=== PATIENT | female | born 1970 | race Caucasian/White ===

== ENCOUNTER → 2022-11-03 10:12 | Outpatient (CLI) | payer MEDICARE, SELFPAY ==
--- NOTE | ~2022-11-03 | XR_ITS ---
Right Hand Technique: PA and lateral views were obtained. Clinical History: Laceration Findings: No acute fracture or dislocation is seen. Osseous alignment is anatomic. Joint spaces are p reserved. Soft tissues are unremarkable. Impression: Unremarkable right hand. Reviewed, dictated and finalized at location M. Impression: Unremarkable right hand.
--- NOTE | ~2022-11-03 | XR_ITS ---
Left Hand Technique: PA and lateral views were obtained. Clinical History: Laceration Findings: No acute fracture or dislocation is seen. Osseous alignment is anatomic. Joint spaces are p reserved. Soft tissues are unremarkable. Impression: Unremarkable left hand. Reviewed, dictated and finalized at location M. Impression: Unremarkable left hand.
== END ==
PROVIDERS: PCP Family Medicine; Visit Provider Family Medicine
DX: S61.419A Laceration without foreign body of unspecified hand, initial encounter (principal); T14.90XA Injury, unspecified, initial encounter
CPT/HCPCS: 73120

== ENCOUNTER → 2022-12-17 08:15 | Outpatient (CLI) | payer MEDICARE, SELFPAY ==
--- NOTE | ~2022-12-17 | MR_ITS ---
MRI of the lumbar spine Clinical History: Back pain Technique: Axial T2-weighted images, and sagittal T1-weighted, T2-weighted, and and T2 fat-sat images were acquired. Findings: There is 3 mm anterolisthesis of L5 over S1. No fracture identified. No suspicious bone mar row signal abnormality seen. At L1-L2, L2-L3, L3-L4, intervertebral discs maintain normal signal and position. No disc bulge or he rniation at these levels. There are mild facet joint degenerative changes at these levels. No spinal canal stenosis or neural foraminal narrowing at these levels. At L4-L5, there is minimal disc bulge with moderate facet arthropathy. No central canal stenosis or n eural foraminal narrowing. At L5-S1, there is moderate to advanced degenerative disc narrowing. There is minimal disc bulge and mild facet arthropathy. No spinal canal stenosis. There is moderate bilateral neural foraminal narrow ing. Paravertebral soft tissues are unremarkable. Impression: Moderate bilateral neural foraminal narrowing at L5-S1. Reviewed, dictated and finalized at location . Impression: Moderate bilateral neural foraminal narrowing at L5-S1.
== END ==
PROVIDERS: Visit Provider Nurse Practitioner Family
DX: M48.07 Spinal stenosis, lumbosacral region (principal)
CPT/HCPCS: 72148

== ENCOUNTER 2023-10-30 18:58 | Emergency (ER) | payer MEDICARE, MEDICAID, SELFPAY ==
--- NOTE | ~2023-10-30 | XR_ITS ---
EXAMINATION: XR hand RT min 3V DATE: 10/30/2023 19:41 INDICATION: Right hand injury with pain TECHNIQUE: Posteroanterior, oblique and lateral views of the right hand were obtained. COMPARISON: None. FINDINGS: Bone alignment is normal. No fracture. Joint spaces are well maintained. There is no elbow joint effu oscar. IMPRESSION: 1. Negative right hand radiographs. Reviewed, dictated and finalized at location A.
[2023-10-30 19:13] VITALS: BP 141/97; PULSE 106; RESP 16; TEMP 36.6; O2SAT 96
--- NOTE | 2023-10-31 17:03 | ED.GENADULT ---
HPI - General Adult General Chief complaint: Extremity Injury, Upper Stated complaint: Fall Injury/Right Hand/Wrist Time Seen by Provider: 10/30/23 19:57 Source: patient, RN notes reviewed and old records reviewed Mode of arrival: ambulatory Limitations: no limitations History of Present Illness HPI narrative: 53-year-old female to [facility] for complaint of right hand pain status post fall this morning. Patient states that she initially did not have any pain but that it has slowly come on throughout the day. Patient reports taking prescription pain medication for chronic neck and back pain. Patient reports that she is still having breakthrough pain and right hand. Patient hitting during fall, denies numbness, tingling, decreased range of motion, weakness. Respirations even and nonlabored. Patient in no acute distress. Related Data Home Medications Medication Instructions Recorded Confirmed atorvastatin 10 mg tablet 20 mg PO DAILY 11/29/22 07/12/23 hydrocodone 10 mg-acetaminophen 1 tablet PO Q4H PRN 11/29/22 07/12/23 325 mg tablet oxycodone 10 mg tablet,extended mg PO 11/29/22 07/12/23 release,12 hr triamcinolone acetonide 0.5 % 1 applic topical BID PRN 09/25/23 topical cream Allergies Allergy/AdvReac Type Severity Reaction Status Date / Time No Known Allergies Allergy Unknown Verified 09/25/23 12:57 Review of Systems Review of Systems: All systems reviewed & are unremarkable except as noted in HPI and below Constitutional: Constitutional: Reports no additional constitutional complaints Eyes: Eyes: Reports no additional eye complaints ENT: Reports system reviewed and no additional complaints, except as documented Cardiovascular: Cardiovascular: Reports no additional cardiovascular complaints, Denies chest pain and Denies dyspnea Respiratory: Respiratory: Reports no additional respiratory complaints, Denies cough and Denies dyspnea Musculoskeletal: Musculoskeletal: Reports as per HPI and Reports arthralgias ( right wrist/hand) Neurologic: Reports system reviewed and no additional complaints, except as documented Psychiatric: Psychiatric: Reports no additional psychiatric complaints PMF Past Medical History Medical History Hx of migraines Migration of spinal cord stimulator Thyroid disease Surgical History Surgical History History of fundoplication Hx of abdominal hysterectomy Family History Family History Other Alcoholism Cerebrovascular accident Heart disease Hypertension Social History Social History Smoking packs per day: 1.5 Smoking cigarettes per day: 30.0 Smoking status: Current every day smoker Tobacco type: cigarettes Second hand tobacco smoke exposure: No Alcohol intake: never Substance use: never Substance use type: does not use Lack of Transportation: No Lack of Food: Never True Current Housing: I Have Housing Concerned About Future Housing: No Difficulty Paying Gas/Electric Bills: No Difficulty Paying for Meds: No Currently Unemployed: YES Education: High School Diploma/GED Difficulty w/ Childcare or Family Care: No Living arrangements: alone Occupation/Education: unemployed Gender identity (if verbalized by the patient): Female Sexual Orientation (if Verbalized by the Patient): Straight or Heterosexual Spiritual care concerns: No Agree to blood products: Yes Comments At the time of my signature, I reviewed and agree with the nursing past medical, surgical, social, and family history. There is no relevant family history pertinent to the patient complaint. Exam Const: General: cooperative, comfortable, no acute distress, alert and well nourished Nutritional Appearance:
== END 2023-10-30 20:11 | disposition home or self-care (01) ==
PROVIDERS: Emergency Provider Nurse Practitioner Family; PCP Family Medicine
DX: S66.911A Strain of unspecified muscle, fascia and tendon at wrist and hand level, right hand, initial encounter (principal); W19.XXXA Unspecified fall, initial encounter; F17.210 Nicotine dependence, cigarettes, uncomplicated
CPT/HCPCS: 73130; 99213; G0463

== ENCOUNTER 2024-06-04 17:55 | Emergency (ER) | payer MEDICARE, SELFPAY ==
[2024-06-04 18:02] VITALS: BP 143/90; PULSE 91; RESP 20; TEMP 36.7; O2SAT 98
--- NOTE | 2024-06-04 18:51 | ED.SKABFB ---
HPI - Skin/Abscess/Foreign Bdy General Chief complaint: Skin/Abscess/Foreign Body Stated complaint: Rash all over Time Seen by Provider: 06/04/24 18:55 Source: patient, RN notes reviewed and old records reviewed Mode of arrival: ambulatory Limitations: no limitations History of Present Illness HPI narrative: 53 year old female presents to [facility] with complaints of noting small red itchy bumps over her body since yesterday. Patient denies any new medications, foods, soaps lotions, or any laundry products, does have dog but no noted fleas on dog. Patient reports that she has been taking Benadryl, using hydrocortisone cream to rash areas, denies any rash in perineal area. or on hands or finger . MD complaint: rash Onset (ago): day(s) (started yesterday) Location: generalized Severity scale (1-10): 9 Quality: pruritic Treatments prior to arrival: other (Benadryl and cortisone ointment) Related Data Home Medications ?Medication ?Instructions ?Recorded ?Confirmed ?Last Taken ?Type hydrocodone 10 mg-acetaminophen 1 tablet PO Q4H PRN Pain 11/29/22 04/25/24 Unknown History 325 mg tablet fluticasone propionate 50 See Rx Instructions .Route .COMPLEX 02/07/24 04/25/24 Unknown History mcg/actuation nasal spray,suspension oxycodone 20 mg tablet,crush 20 mg PO BID 02/07/24 04/25/24 Unknown History resistant,extended release 12 hr (OxyContin) Allergies Allergy/AdvReac Type Severity Reaction Status Date / Time No Known Allergies Allergy Unknown Verified 06/04/24 18:02 Review of Systems Review of Systems: CONSTITUTIONAL: Denies fever, chills, or sweats. CARDIOVASCULAR: Denies chest pain, palpitations, or edema. RESPIRATORY: Denies cough or dyspnea. SKIN: Reports rash starting yesterday to abdomen and has spread to legs, arms, and back today, is small red itchy bumps no vesicles or pustules MUSCULOSKELETAL: Denies joint pain or myalgia. NEUROLOGIC: Denies headache, numbness, or weakness. All systems reviewed & are unremarkable except as noted in HPI and below PMFSH Past Medical History Medical History Arthritis Fracture of humerus required orthopedic surgery Hyperlipidemia Migration of spinal cord stimulator Thyroid disease Hx of migraines Surgical History Surgical History H/O arthroscopy of right knee History of lumbar laminectomy History of fundoplication Hx of abdominal hysterectomy Family History Family History Other Alcoholism Cerebrovascular accident Heart disease Hypertension Social History Social History Smoking packs per day: 1 Smoking cigarettes per day: 20.0 Smoking status: Current every day smoker Tobacco type: cigarettes Second hand tobacco smoke exposure: No Alcohol intake: never Substance use: never Substance use type: does not use Lack of Transportation: No Lack of Food: Never True Current Housing: I Have Housing Concerned About Future Housing: No Difficulty Paying Gas/Electric Bills: No Difficulty Paying for Meds: No Currently Unemployed: YES Education: High School Diploma/GED Difficulty w/ Childcare or Family Care: No Living arrangements: alone Occupation/Education: unemployed Gender identity (if verbalized by the patient): Female Sexual Orientation (if Verbalized by the Patient): Straight or Heterosexual Spiritual care concerns: No Agree to blood products: Yes Comments At time of signature, agree with nursing past medical, surgical, social and family history. There is no relevant family history pertinent to the presenting complaint Exam Narrative: GENERAL: Well-appearing, well-nourished, and in no acute distress. HEAD: Normocephalic, atraumatic. EYES: PERRLA, conjunctivae clear, and EOMI. ENT: Mucous membranes moist. Oropharynx without edema, erythema or lesions. NECK: Supple. No lymphadenopathy CHEST: Clear to auscultation. No respiratory distress. SAO2 98% on room air HEART: Regular rate and rhythm. SKIN: Warm, dry.? Patches of red small itchy bumps generalized on body none in perineal area mainly chest back and on limbs.no pustules or vesicles noted. NEURO:? Alert and oriented x3. PSYCH: Normal mood and affect Course Course Emergency Course: Patient is aware of diagnosis, understands and agrees to treatment plan.? Anticipatory guidance given.? Patient agrees to follow-up as directed and is aware of reasons to seek care at the emergency department. Portions of this record may have been created with voice recognition software Level of Care: Express Care Visit Vital Signs Vital signs: Vital Signs Temperature 36.7 C 06/04/24 18:02 Pulse Rate 91 06/04/24 18:02 Respiratory Rate 20 06/04/24 18:02 Blood Pressure 143/90 H 06/04/24 18:02 Pulse Oximetry 98 06/04/24 18:02 Oxygen Delivery Room Air 06/04/24 18:02 Temperature 36.7 C 06/04/24 18:02 Pulse Rate 91 06/04/24 18:02 Respiratory Rate 20 06/04/24 18:02 Blood Pressure 143/90 H 06/04/24 18:02 Pulse Oximetry 98 06/04/24 18:02 Oxygen Delivery Room Air 06/04/24 18:02 Reviewed MDM - Skin/Abscess/Foreign Bdy MDM Narrative Medical decision making narrative: Does not appear at this time to be erythema multiforme, bullous, SJS, TEN; no evidence at this time to suggest RMSF, endocarditis or Lyme disease; patient looks well, nontoxic and is tolerating oral intake; no neurologic signs or symptoms; no headache, photophobia or neck pain; afebrile; appropriate for initial outpatient treatment; discussed the importance of follow-up, patient agrees; question, viral exanthema, contact dermatitis, allergic dermatitis, eczema, urticaria, [ xx ]. No soft palate or uvula edema, no tongue, lip edema or other mucosal involvement, no respiratory compromise, no stridor, no wheezing, no wheezing, no history of syncope, no hypotension, no nausea, vomiting, or diarrhea.? Instructed patient to go to nearest ER immediately for any worsening symptoms including but not limited to: fever, spreading rash, pain, sore throat, headache, dizziness, chest pain, trouble breathing, or any symptoms concerning to the patient. Differential Diagnosis Differential diagnosis: Likely eczema, insect bites, contact dermatitis and other (pruritic rash) Medical Records Attestation: I reviewed the patient's medical records. Critical Care Time Critical Care Time Critical Care Time: No Discharge Plan Discharge Clinical Impression: Contact dermatitis Qualifiers: Contact dermatitis type: unspecified Contact dermatitis trigger: unspecified trigger Qualified Code(s): L25.9 - Unspecified contact dermatitis, unspecified cause Patient Disposition: Home, Self-Care Condition: Stable Instructions: Contact Dermatitis (ED) Additional Instructions: cleanse skin using liquid dial soap and then may apply triamcinolone ointment to rash, never apply to face Steroid taper take as ordered start tomorrow, watch for increasing infection--redness, swelling, drainage Zyrtec daily for 10 days and Pepcid 20 mg daily for 10 days follow up with PCP in 7-10 days for a wound check recheck if develop fever, chills, increasing symptom Go to the ER if your symptoms become worse of if ANY new symptoms develop wash sheets and bedding well avoid any new medication or foods or any new skin products If your symptoms persist, change or worsen significantly before you can contact your personal physician then please, without delay, go to the emergency department for further evaluation. Follow-up with PCP in 7-10 days or sooner if needed Follow up with PCP soon in regards to your blood pressure which is elevated above threshold for referral. Blood pressure above 120/80 may indicate pre-hypertension. Patient Language: Bolivian Prescriptions: New triamcinolone acetonide 0.1 % ointment 1 applic topical BID Qty: 80 0RF Rx Instructions: never apply to face prednisone 10 mg tablet 10 mg PO DIRECTED Qty: 21 0RF Rx Instructions: see taper instructions 6 tabs day 1, 5 tabs day 2, 4 tabs day 3, 3 tabs day 4, 2 tabs day 5, 1 tab day 6 famotidine [Pepcid] 20 mg tablet 20 mg PO DAILY Qty: 10 0RF No Action fluticasone propionate 50 mcg/actuation spray,suspension See Rx Instructions .ROUTE .COMPLEX Rx Instructions: as prescribed oxycodone [OxyContin] 20 mg tablet,oral only,ext.rel.12 hr 20 mg PO BID hydrocodone-acetaminophen 10-325 mg tablet 1 tablet PO Q4H PRN (Reason: Pain) Rx Instructions: asprescribed duloxetine 60 mg capsule,delayed release(DR/EC) 60 mg PO BID Qty: 60 6RF esomeprazole magnesium 40 mg capsule,delayed release(DR/EC) 40 mg PO DAILY Qty: 90 3RF atorvastatin 20 mg tablet 20 mg PO DAILY Qty: 90 1RF mirtazapine 30 mg tablet 30 mg PO QHS Qty: 30 6RF amitriptyline 25 mg tablet 25 mg PO QHS Qty: 30 6RF cyclobenzaprine 10 mg tablet 10 mg PO TID Qty: 180 1RF levothyroxine 50 mcg tablet 50 mcg PO DAILY Qty: 30 5RF meloxicam 15 mg tablet 15 mg PO DAILY Qty: 90 0RF Follow-up/Referrals: Corrie De Los Santos MD [Primary Care Provider] - Time of Disposition: 19:09 Quality [place] Coma Scale Eyes: Open Verbal: Oriented and Alert Motor: Follows Commands Kaycee Coma Total Score: 15
[2024-06-04] MEDS: predniSONE 20 MG TABLET PO (19:01)
[2024-06-04] MEDS: FAMOTIDINE 20 MG TABLET PO (19:01)
== END 2024-06-04 19:16 | disposition home or self-care (01) ==
PROVIDERS: Emergency Provider Registered Nurse; PCP Family Medicine
DX: L25.9 Unspecified contact dermatitis, unspecified cause (principal); E78.5 Hyperlipidemia, unspecified; F17.210 Nicotine dependence, cigarettes, uncomplicated
CPT/HCPCS: 99213; A9270; G0463; J7512

== ENCOUNTER 2024-08-27 09:08 | Outpatient (CLI) | payer MEDICARE, MEDICAID, SELFPAY ==
--- NOTE | ~2024-08-27 | XR_ITS ---
XR hand LT min 3V Ordering provider: Cherri Masters MD History: . G56.03 - Carpal tunnel syndrome, bilateral upper limbs . Comparison: None. FINDINGS: BONES: No acute fracture or dislocation. JOINT SPACES: Well maintained. SOFT TISSUES: Unremarkable. IMPRESSION: No acute osseous abnormality left hand. Reviewed, dictated and finalized at location A.
--- OUTSIDE RECORDS SUMMARY | 2024-08-27 09:17 | XMS_ITS | Clinical Summary ---
Author Organization [facility] Address [address] [place] [address] Care Team Providers Care Restaurant Cashier Name Role Phone Corrie De Los Santos MD Primary Care Provider [phone] Claribel Norton RN Unavailable [phone] Source Comments [facility],non-owned Affiliates and Associated Physician Practices is amultiple site organization consisting of ambulatory clinics and hospital sitesin [place], [place], [place] and [place]. This disclosure is being madepursuant to the Care Everywhere program and may not contain all information available regarding this patient. Last updated 17.[facility] Allergies No known active allergies Medications * Be aware that medications may not be up to date on this document. Alwaysverify current medications with the patient. sertraline (ZOLOFT) 50 MG tablet Take 50 mg by mouth at bedtime. Active DULoxetine (CYMBALTA) 30 MG capsule Take 30 mg by mouth 3 times daily. Active esomeprazole (NEXIUM) 40 MG packet Take 40 mg by mouth 2 times daily,before breakfast and supper. Active cyclobenzaprine (FLEXERIL) 10 MG tablet Take 10 mg by mouth 3 times daily as needed for Muscle Spasms. Active hydrocodone-mary taminophen (NORCO) 10-325 MG tablet Take 1 Tab by mouth every 6 hours as needed for Pain. Takes 1-2 tablets Active oxyCODONE CR 12hr (OXYCONTIN) 40 MG tablet Take 40 mg by mouth every 12 hours. Active lamoTRIgine (LAMICTAL) 25 MG tablet Take 25 mg by mouth at bedtime. Takes 2 at hs Active ondansetron, disintegrating, (ZOFRAN ODT) 8 MG tablet Take 1 Tab by mouth every 4 hours as needed for Nausea/Vomitin g. Allow tablet to dissolve on the tongue 20 Tab 0 5 Active ondansetron, disintegrating, (ZOFRAN ODT) 4 MG tablet Take 1 Tab by mouth every 6 hours as needed for Nausea/Vomitin g. 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 Gender Identity Not on file Sexual Orientation Not on file Last Filed Vital Signs Vital Sign Reading Time Taken Comments Blood Pressure 123/87 01/01/2015 9:30 AM CDT Pulse 96 01/01/2015 9:30 AM CDT Temperature 36.7 C (98 F) 01/01/2015 9:11 AM CDT Respiratory Rate 16 01/01/2015 9:30 AM CDT Oxygen Saturation 99% 01/01/2015 9:30 AM CDT Inhaled Oxygen Concentration - - Weight 57.2 kg (126 lb) 01/01/2015 8:24 AM CDT Height 152.4 cm (5') 01/01/2015 8:24 AM CDT Body Mass Index 24.61 01/01/2015 8:24 AM CDT Plan of Treatment Health Maintenance Due Date Last Done Comments COLOGUARD (AGES 45-75) - COL ON CA SCREENING 1970 COLON MONITORING 1970 COLONOSCOPY - COLON CA SCREENING 1970 CT COLONOGRAPHY - COLON CA SCREENING 1970 Colorectal Cancer Screening 1970 FIT - COLON CA SCREENING 1970 FLEX SIG - COLON CA SCREENING 1970 LIPID TESTING 1970 MAMMOGRAM 1970 HIV SCREENING 1985 HEPATITIS C SCREENING 08/26/1988 DTAP/TDAP/TD VACCINES (1 - Tdap) 1989 HEPATITIS B VACCINE (1 of 3 - 19+ 3-dose series) 1989 PNEUMOCOCCAL VACCINE 50+ (1 of 2 - PCV) 1989 ZOSTER VACCINE (1 of 2) 2020 COVID-19 VACCINE (1 - 2023-2 5 season) 2023 DEPRESSION SCREENING 04/03/2024 INFLUENZA VACCINE (Season Ended) 2024 HIB VACCINE Aged Out No longer eligi ble based on patient's age to complete this topic HPV VACCINE Aged Out No longer eligi ble based on patient's age to complete this topic MENINGOCOCCAL (Group B) VACC INE SHARED DECISION-MAKING Aged Out No longer eligibl e based on patient's age to complete this topic MENINGOCOCCAL GROUPS A/C/Y/W VACCINE Aged Out No longer eligible b ased on patient's age to complete this topic Insurance [facility] Advance Directives * Full Code (Latest Code Status on File) Date Activated Date Inactivated Comments 04/01/2014 7:04 PM 04/03/2014 3:08 PM Care Teams Restaurant Cashier Relationship Specialty Start Date End Date Corrie De Los Santos MD [address] [place] [address] PCP - General Family Medicine 02/26/14 Claribel Norton RN [phone] [place] [address] Grinder Operator External Tool 04/02/14
== END 2024-08-27 09:09 | disposition home or self-care (01) ==
PROVIDERS: PCP Family Medicine; Visit Provider Plastic Surgery
DX: G56.03 Carpal tunnel syndrome, bilateral upper limbs (principal)
CPT/HCPCS: 73130

== ENCOUNTER 2024-10-15 10:32 | Outpatient (CLI) | payer MEDICARE, MEDICAID, SELFPAY ==
--- OUTSIDE RECORDS SUMMARY | 2024-10-15 10:54 | XMS_ITS | Patient Health Record ---
Author Organization [facility] Address [address] [place], [place] [id number] Care Team Providers Care Armature Winder Name Role Phone ADRI PARRA MD Primary Care Provider Cong Orantes Unavailable [phone] REASON FOR REFERRAL No Information MEDICATIONS Medication SIG (Take, Route, Frequency, Duration) Notes Start Date End Date Status hydrocodone/APAP 10/325mg 1-2 tab (s) every 4 hrs. 04/03/2024 04/03/2024 Active Mobic 15 mg 1 tab(s) orally once a day 05/27/2010 04/03/2024 Active Cymbalta 60 mg 1 cap(s) orally once a day for 30 day(s) 04/03/2024 04/03/2024 Active NexIUM 40 mg 1 cap(s) orally once a day for 30 day(s) 04/03/2024 04/03/2024 Active lamoTRIgine 25 mg 2 tab(s) orally hs f or 30 day(s) 04/03/2024 04/03/2024 Active Zoloft 50 mg 1 tab(s) orally once a day for 30 day(s) 04/03/2024 04/03/2024 Active PROBLEMS Problem Type ICD Code Onset Dates Problem Status W/U Status Risk SNOMED Code Notes Problem POLYARTHRITIS (716.59) Active confirmed Polyarthritis (875470027) Problem Lumbago (724.2) Active confirmed Lumbag o (688775398) Problem Pre-treatment laboratory examination (V72.63) Active confirmed Problem MONITOR MED (V58.69) Active confirmed Long-term drug therapy (579551996) Problem Sacroiliitis NOS (720.2) Active confirmed Solitary sacroiliitis (304722891) PLAN OF TREATMENT Pending Test Test Name Order Date C-Reactive Protein, Quant 05/27/2010 Insurance Providers Payer Name Payer Address Payer Phone Subscriber Number Group Number Insured Name Patient Relationship to Insured Coverage Start Date Coverage End Date [employer] [address] [place] [address] [id number] 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
--- OUTSIDE RECORDS SUMMARY | 2024-10-15 10:54 | XMS_ITS | Referral Summary ---
Author Organization [facility] [place] [address] Address [address] [place] [address] Care Team Providers Care Lottery Office Manager Name Role Phone Tad Fitzpatrick MD Primary Care Provider [phone] Allergies No known active allergies Medications atorvastatin (LIPITOR) 20 mg tablet 08/09/2021 Active cyclobenzaprine (FLEXERIL) 10 mg tablet 08/02/[address] (CYMBALTA) 60 mg capsule Take 120 mg by mouth daily 09/24/[address] (NexIUM) 40 mg capsule 08/09/2021 Active famotidine (PEPCID) 10 mg tablet Take 10 mg by mouth 2 times daily Active HYDROcodone-acet aminophen (NORCO) 10-325 mg per tablet 08/02/2021 Activ e levothyroxine (SYNTHROID) 50 mcg tablet 08/09/2021 Active OxyCONTIN 10 mg 12 hr abuse-deterrent tablet 08/02/2021 Active oxyCODONE-acetam inophen (PERCOCET) 10-325 mg per tablet 06/15/2021 Active amitriptyline (ELAVIL) 25 mg tablet 07/27/2021 Active Active Problems Problem Noted Date Diagnosed Date Anxiety 08/23/2021 Chronic neck pain 08/23/2021 Overview (08/23/2021): Lumbar; managed by pain management. Depression 08/23/2021 Overview (08/23/2021): Last Assessment & Plan: D/w pt that since insurance will not pay for Cymbalta at 3 capsules daily then will change to 60 mg at 2 capsules daily. Hyperlipidemia 08/23/2021 Overview (08/23/2021): Last Assessment & Plan: Checking labs. RF Lipitor 20 mg qhs. Postlaminectomy syndrome, not elsewhere classifi ed 08/23/2021 Cervical myelopathy 02/03/2021 Spinal cord stimulator dysfunction, initial enco unter 02/03/2021 GERD (gastroesophageal reflux disease) Overview (08/23/2021): Last EGD was 2020. Needs EGD every 3 years. Last Assessment & Plan: Stable. RF Nexium 40 mg daily. IBS (irritable bowel syndrome) 05/08/2020 Overview (08/23/2021): Last Assessment & Plan: D/w pt options and will start Xifaxan 550 mg TID for 14 days. Current mild episode of ramya r depressive disorder without prior episode 04/13/2020 Upper respiratory tract infection 04/13/2020 Onychomycosis 03/09/2020 Overview (08/23/2021): Last Assessment & Plan: Start Lamisil. Checking LFTs. LAD (lymphadenopathy) 12/25/2019 Overview (08/23/2021): Last Assessment & Plan: Checking labs. Order CT soft tissue neck. Acute recurrent maxillary sinusitis 10/29/2019 Overview (08/23/2021): Last Assessment & Plan: Gave Rocephin and Decadron IM. Start cefuroxime. Complication of surgical procedure 09/03/2019 Hot flashes 12/21/2018 Overview (08/23/2021): Last Assessment & Plan: D/w pt that will start work up by checking labs today. Fatty liver disease, nonalcoholic 06/30/2018 Overview (08/23/2021): Last Assessment & Plan: D/w pt CT abd/pelvis results during appt. D/w pt weight loss and low cholesterol diet to improve. Vitamin D deficiency 06/30/2018 Overview (08/23/2021): Last Assessment & Plan: Checking labs and based on results will decide about supplementation. Tobacco use disorder 04/21/2018 Overview (08/23/2021): Last Assessment & Plan: D/w pt options and will start Chantix starter pack and then continuing month pack for 3 months. D/w pt med SE including vivid dreams. Hypothyroidism 04/17/2018 Overview (08/23/2021): Last Assessment & Plan: Checking labs. For now continue Levothyroxine 50 mcg daily. COPD (chronic obstructive pulmonary disease) Overview (08/23/2021): Last Assessment & Plan: Getting ER records. Improved. For now continue Albuterol inhaler. Based on ER records will decide about starting daily med. D/w pt smoking cessation and will start Chantix. 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 Gender Identity Not on file Sexual Orientation Not on file Last Filed Vital Signs Vital Sign Reading Time Taken Comments Blood Pressure 134/86 08/23/2021 1:59 PM CDT Pulse 101 08/23/2021 1:59 PM CDT Temperature 37.1 C (98.7 F) 08/23/2021 1:59 PM CDT Respiratory Rate 18 08/23/2021 1:59 PM CDT Oxygen Saturation 97% 08/23/2021 1:59 PM CDT Inhaled Oxygen Concentration - - Weight 59 kg (130 lb) 08/23/2021 1:59 PM CDT Height 152.4 cm (5') 08/23/2021 1:59 PM CDT Body Mass Index 25.39 08/23/2021 1:59 PM CDT Plan of Treatment Not on file Procedures Procedure Name Priority Date/Time Associated Diagnosis Comments DIAGNOSTIC MAMMOGRAM BILATERAL W ABDON Routine 06/17/2015 1:12 PM CDT from Last 3 Months or Most Recently Relevant to Health Maintenance Results * DIAGNOSTIC MAMMOGRAM BILATERAL W ABDON (06/17/2015 1:12 PM CDT) Anatomical Region Laterality Modality Breast Bilateral Mammography 06/17/2015 1:12 PM CDT Narrative 06/17/2015 3:20 PM CDT MAMMOGRAM PERFORMED BY: TAWANNA SCREENING MAMM W ABDON BI Acc#: [id number] Screening Mamm Bi Acc#: [id number] DATE OF EXAM: Jun 17 2015 CLINICAL HISTORY: Breast cancer screening. RESULT: A screening mammogram with tomosynthesis was performed and compared with prior studies from 09/10/13 and 05/17/12. The breast tissue is composed of scattered fibroglandular densities. Little change since the prior mammograms are seen. Benign breast calcifications are noted. A nodular density in the left upper outer quadrant remains unchanged. A nodular density in the right central breast has decreased in size. No new dominant mass, architectural distortion or suspicious calcifications are seen. Digital technology was employed plus computer-aided detection software (R2) was utilized in interpretation of these images. This facility utilizes a reminder system to notify patients of yearly mammograms. IMPRESSION: NO SUSPICIOUS FINDINGS TO INDICATE MALIGNANCY. BI-RADS CATEGORY 2 - BENIGN. Interpreting Physician: AMARIS OTTO M.D. Read on: Jun 17 2015 1:13P Transcribed by: CARLY On: Jun 17 2015 3:20P Approved Electronically by: AMARIS OTTO M.D. on: Jun 17 2015 3:20P Attending: ADRI PARRA Requesting: DR ADRI PARRA Requesting Fax: -- Attending Fax: -- Attending ID: [id number] Requesting ID: [id number] Report To 1 ID: [id number] Report To 1 Name: ADRI PARRA Report To 1 FAX: -- NextGen Order #: Procedure Note Provider, MD Ravi - 07/28/2016 MAMMOGRAM PERFORMED BY: TAWANNA SCREENING MAMM W ABDON BI Acc#: [id number] Screening Mamm Bi Acc#: [id number] DATE OF EXAM: Jun 17 2015 CLINICAL HISTORY: Breast cancer screening. RESULT: A screening mammogram with tomosynthesis was performed and compared withprior studies from 09/10/13 and 05/17/12. The breast tissue is composed ofscattered fibroglandular densities. Little change since the priormammograms are seen. Benign breast calcifications are noted. A nodulardensity in the left upper outer quadrant remains unchanged. A nodulardensity in the right central breast has decreased in size. No new dominantmass, architectural distortion or suspicious calcifications are seen.Digital technology was employed plus computer-aided detection software(R2) was utilized in interpretation of these images. This facilityutilizes a reminder system to notify patients of yearly mammograms. IMPRESSION: NO SUSPICIOUS FINDINGS TO INDICATE MALIGNANCY. BI-RADS CATEGORY 2 -BENIGN. Interpreting Physician: AMARIS OTTO M.D. Read on: Jun 17 20151:13P Transcribed by: CARLY On: Jun 17 2015 3:20P Approved Electronically by: AMARIS OTTO M.D. on: Jun 17 20153:20P Attending: ADRI PARRA Requesting: DR ADRI PARRA Requesting Fax: -- Attending Fax: -- Attending ID: [id number] Requesting ID: [id number] Report To 1 ID: [id number] Report To 1 Name: ADRI PARRA Report To 1 FAX: -- NextGen Order #: Historical Provider MD [facility] MAMMO PROCEDURES Lu l Result from Last 3 Months or Most Recently Relevant to Health Maintenance Insurance [place] [address] Member Subscriber Plan / Payer (Ef fective 2021-Present) Name:Michelle Perez Relation to Subscriber:Self Name:Michelle Perez Payer ID:[id number] (NAIC) Type:UHC MEDICARE Address: [address] BUREAU OF DISABILITY Care Teams Lottery Office Manager Relationship Specialty Start Date End Date Tad Fitzpatrick MD [address] [place] [address] PCP - General 09/25/06
--- OUTSIDE RECORDS SUMMARY | 2024-10-15 10:54 | XMS_ITS | Clinical Summary ---
Author Organization [facility] Address [address] [place] [address] Care Team Providers Care Wallpaper Printer Helper Name Role Phone Corrie De Los Santos MD Primary Care Provider [phone] Claribel Norton RN Unavailable [phone] Source Comments [facility],non-owned Affiliates and Associated Physician Practices is amultiple site organization consisting of ambulatory clinics and hospital sitesin [place], [place], [place] and [place]. This disclosure is being madepursuant to the Care Everywhere program and may not contain all information available regarding this patient. 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 Gender Identity Not on file Sexual Orientation [...] season) 2023 DEPRESSION SCREENING 04/03/2024 INFLUENZA VACCINE (#1) 2024 HIB VACCINE Aged Out No longer [...] patient's age to complete this topic Insurance [facility] Advance Directives * Full Code (Latest Code Status on File) Date Activated Date Inactivated Comments 04/01/2014 7:04 PM 04/03/2014 3:08 PM Care Teams Wallpaper Printer Helper Relationship Specialty Start Date End Date Corrie De Los Santos MD [address] [place] [address] PCP - General Family Medicine 02/26/14 Claribel Norton RN [address] [facility] [address] [place] [address] Sap Ppm Consultant 04/02/14
--- OUTSIDE RECORDS SUMMARY | 2024-10-15 10:54 | XMS_ITS | Clinical Summary ---
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 Gender Identity Not on file Sexual Orientation Not on file Obstetrics History Last Filed Vital Signs Vital Sign Reading [...] 08/23/2021 1:59 PM CDT Plan of Treatment Health Maintenance Due Date Last Done Comments Cervical Cancer Screening 1970 Colon Cancer Screening-Colonoscopy 1970 Depression Screening 1970 Hepatitis C Screening 1970 DTaP/Tdap/Td Vaccine (1 - Tdap) 1981 Hepatitis B Screening 1988 Regular Well Visit/Exam 18-64 1988 Pneumococcal vaccine <65 (1 of 2 - PCV) 1989 Breast Cancer Screening-Mammogram 06/16/2016 06/17/2015, 09/10/2013, 05/17/2012 Zoster Vaccine (1 of 2) 2020 Covid-19 Vaccine (3 - season) 2023, 06/10/2020 Influenza Vaccine (Season Ended) 2024 Procedures Procedure Name Priority Date/Time Associated Diagnosis [...] TAWANNA SCREENING MAMM W ABDON BI Acc#: [id number] Screening Mamm Bi Acc#: [id number] DATE OF EXAM: Jun 17 2015 CLINICAL [...] Attending: ADRI PARRA Requesting: DR ADRI PARRA S Requesting Fax: -- Attending Fax: -- Attending ID: [id number] Requesting ID: [id number] Report To 1 ID: [id number] Report To 1 Name: ADRI PARRA Report To 1 FAX: -- NextGen Order #: Procedure Note Provider, MD Ravi - 07/28/2016 MAMMOGRAM PERFORMED BY: TAWANNA SCREENING MAMM W ABDON BI Acc#: [id number] Screening Mamm Bi Acc#: [id number] DATE OF EXAM: Jun 17 2015 CLINICAL [...] Fax: -- Attending Fax: -- Attending ID: [id number] Requesting ID: [id number] Report To 1 ID: [id number] Report To 1 Name: ADRI PARRA Report To 1 FAX: -- NextGen Order #: us Historical Provider MD [facility] MAMMO PROCEDURES Lu l Result from Last 3 Months or Most Recently Relevant to Health Maintenance Insurance [place] [employer] DIS[employer] Care Teams Lapping Machine Operator Relationship Specialty Start Date End Date Tad Fitzpatrick MD [address] [place] [address] PCP - General 09/25/06
--- NOTE | 2024-10-15 11:00 | NEURO_ITS ---
Impression: # Complains of numbness of hands ? # No Carpal Tunnel Syndrome ? # Bilateral Ulnar Neuropathy, right more than left? # Normal Needle/ EMG exam Nerve Conduction Studies ?Stim Site NR Peak (ms) P-T Amp (?V) Site1 Site2 Delta-P (ms) Dist (cm) Nick (m/s) Left Median Anti Sensory (2-3nd Digit) Wrist ? 2.4 88.3 Wrist 2-3nd Digit 2.4 14.0 58 Wrist ? 2.5 92.7 Wrist 2-3nd Digit 2.4 14.0 58 Right Median Anti Sensory (2-3nd Digit) Wrist ? 2.4 86.8 Wrist 2-3nd Digit 2.4 14.0 58 Wrist ? 2.5 82.9 Wrist 2-3nd Digit 2.4 14.0 58 Left Radial Anti Sensory (Base 1st Digit) Wrist ? 1.7 64.6 Wrist Base 1st Digit 1.7 0.0 Right Radial Anti Sensory (Base 1st Digit) Wrist ? 1.8 71.3 Wrist Base 1st Digit 1.8 0.0 Left Ulnar Anti Sensory (5th Digit) Wrist ? 2.1 108.9 Wrist 5th Digit 2.1 14.0 67 Right Ulnar Anti Sensory (5th Digit) Wrist ? 2.3 23.4 Wrist 5th Digit 2.3 14.0 61 ?Stim Site NR Onset (ms) O-P Amp (mV) Site1 Site2 Delta-0 (ms) Dist (cm) Nick (m/s) Left Median Motor (Abd Poll Brev) Wrist ? 3.1 3.0 Elbow Wrist 4.2 27.0 64 Elbow ? 7.3 5.6 Right Median Motor (Abd Poll Brev) Wrist ? 2.4 10.1 Elbow Wrist 4.7 26.0 55 Elbow ? 7.1 9.6 Left Ulnar Motor (Abd Dig Minimi) Wrist ? 1.9 8.1 A Elbow Wrist 4.5 27.0 60 A Elbow ? 6.4 7.8 B Elbow Wrist 3.3 20.0 61 B Elbow ? 5.2 5.3 Right Ulnar Motor (Abd Dig Minimi) Wrist ? 2.1 6.9 A Elbow Wrist 4.9 27.0 55 A Elbow ? 7.0 5.8 B Elbow Wrist 3.5 20.0 57 B Elbow ? 5.6 5.2 Electromyography ?Side Muscle Nerve Root Ins Act Fibs Amp Dur Recrt Comment Right 1stDorInt Ulnar C8-T1 Nml Nml Nml Nml Nml Right Ext Indicis Radial (Post Int) C7-8 Nml Nml Nml Nml Nml Right Ext Digitorum Radial (Post Int) C7-8 Nml Nml Nml Nml Nml Right BrachioRad Radial C5-6 Nml Nml Nml Nml Nml Right PronatorTeres Median C6-7 Nml Nml Nml Nml Nml Right Abd Poll Brev Median C8-T1 Nml Nml Nml Nml Nml Right ABD Dig Min Ulnar C8-T1 Nml Nml Nml Nml Nml Right FlexPolLong Median (Ant Int) C7-8 Nml Nml Nml Nml Nml Right Abd Poll Long Radial (Post Int) C7-8 Nml Nml Nml Nml Nml Left 1stDorInt Ulnar C8-T1 Nml Nml Nml Nml Nml Left Ext Indicis Radial (Post Int) C7-8 Nml Nml Nml Nml Nml Left Ext Digitorum Radial (Post Int) C7-8 Nml Nml Nml Nml Nml Left BrachioRad Radial C5-6 Nml Nml Nml Nml Nml Left PronatorTeres Median C6-7 Nml Nml Nml Nml Nml Left Abd Poll Brev Median C8-T1 Nml Nml Nml Nml Nml Left ABD Dig Min Ulnar C8-T1 Nml Nml Nml Nml Nml Left FlexPolLong Median (Ant Int) C7-8 Nml Nml Nml Nml Nml Left Abd Poll Long Radial (Post Int) C7-8 Nml Nml Nml Nml Nml
== END 2024-10-15 10:33 | disposition home or self-care (01) ==
LOC: ANHNEURO 10:34
PROVIDERS: PCP Family Medicine; Visit Provider Plastic Surgery
DX: G56.33 Lesion of radial nerve, bilateral upper limbs (principal)
CPT/HCPCS: 95886; 95911

== ENCOUNTER 2024-10-28 09:38 | Outpatient (CLI) | payer MEDICARE, MEDICAID, SELFPAY ==
--- NOTE | 2024-10-28 09:46 | ECG_ITS ---
Test Date: 2024-10-28 09:56:14 Measurements Intervals [place]cd[place] Rate: 82 P: 63 [place]: 133 QRS: 59 QRSD: 82 T: 67 QT: 372 QTc: 436 Interpretive Statements SINUS RHYTHM No previous ECG available for comparison Electronically Signed On 10-28-2024 12:44:50 CDT by Manuel Portillo M.D.
--- OUTSIDE RECORDS SUMMARY | 2024-10-28 10:02 | XMS_ITS | Clinical Summary ---
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 Gender Identity Not on file Sexual Orientation [...] of 2) 2020 Covid-19 Vaccine (3 - 2023- season) 2023, 06/10/2020 Influenza Vaccine (#1) 2024 Procedures Procedure Name Priority Date/Time Associated [...] TAWANNA SCREENING MAMM W ABDON BI Acc#: [id number] Screening Mamm Bi Acc#: [id number] DATE OF EXAM: Jun 17 2015 CLINICAL [...] Fax: -- Attending Fax: -- Attending ID: [id number] Requesting ID: [id number] Report To 1 ID: [id number] Report To 1 Name: ADRI PARRA Report To 1 FAX: -- NextGen Order #: Procedure Note Provider, MD Ravi - 07/28/2016 MAMMOGRAM PERFORMED BY: TAWANNA SCREENING MAMM W ABDON BI Acc#: [id number] Screening Mamm Bi Acc#: [id number] DATE OF EXAM: Jun 17 2015 CLINICAL [...] Fax: -- Attending Fax: -- Attending ID: [id number] Requesting ID: [id number] Report To 1 ID: [id number] Report To 1 Name: ADRI PARRA Report To 1 FAX: -- NextGen Order #: us Historical Provider MD [facility] MAMMO PROCEDURES Lu l Result from Last 3 Months or Most Recently Relevant to Health Maintenance Insurance [place] [employer] Care Teams Contract Lead Relationship Specialty Start Date End Date Tad Fitzpatrick MD [address] [place] [address] PCP - General 09/25/06
--- OUTSIDE RECORDS SUMMARY | 2024-10-28 10:02 | XMS_ITS | Clinical Summary ---
Author Organization [facility] Address [address] [facility] [place] [address] Care Team Providers Care Cryptographic Machine Operator Name Role Phone Corrie De Los Santos MD Primary Care Provider [phone] Claribel Norton RN Unavailable [phone] Source Comments [facility],non-owned Affiliates and Associated Physician Practices is amultiple site organization consisting of ambulatory clinics and hospital sitesin [place], [place], [place] and [place]. This disclosure is being madepursuant to the Care Everywhere program and may not contain all information available regarding this patient. 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
--- OUTSIDE RECORDS SUMMARY | 2024-10-28 10:02 | XMS_ITS | Referral Summary ---
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 Gender Identity Not on file Sexual Orientation [...] TAWANNA SCREENING MAMM W ABDON BI Acc#: [id number] Screening Mamm Bi Acc#: [id number] DATE OF EXAM: Jun 17 2015 CLINICAL [...] Fax: -- Attending Fax: -- Attending ID: [id number] Requesting ID: [id number] Report To 1 ID: [id number] Report To 1 Name: ADRI PARRA Report To 1 FAX: -- NextGen Order #: Procedure Note Provider, MD Ravi - 07/28/2016 MAMMOGRAM PERFORMED BY: TAWANNA SCREENING MAMM W ABDON BI Acc#: [id number] Screening Mamm Bi Acc#: [id number] DATE OF EXAM: Jun 17 2015 CLINICAL [...] Fax: -- Attending Fax: -- Attending ID: [id number] Requesting ID: [id number] Report To 1 ID: [id number] Report To 1 Name: ADRI PARRA Report To 1 FAX: -- NextGen Order #: Historical Provider MD [facility] MAMMO PROCEDURES Lu l Result from Last 3 Months or Most Recently Relevant to Health Maintenance Insurance [place] [address] Member Subscriber Plan / Payer (Ef fective 2021-Present) Name:Michelle Perez Relation to Subscriber:Self Name:Michelle Perez Payer ID:[id number] (NAIC) Type:UHC MEDICARE Address: [address] BUREAU OF DISABILITY Care Teams Artillery Meteorological Man Relationship Specialty Start Date End Date Tad Fitzpatrick MD [address] [place] [address] PCP - General 09/25/06
--- OUTSIDE RECORDS SUMMARY | 2024-10-28 10:03 | XMS_ITS | Patient Health Record ---
Author Organization [facility] Address [address] [place], [place] [address] Care Team Providers Care Software Tools Engineer Name Role Phone ADRI PARRA MD Primary Care Provider Cong Orantes Unavailable [phone] REASON FOR REFERRAL No Information MEDICATIONS Medication [...] Notes Problem POLYARTHRITIS (716.59) Active confirmed Polyarthritis (218350850) Problem Lumbago (724.2) Active confirmed Lumbag o (643284255) Problem Pre-treatment laboratory examination (V72.63) Active confirmed Problem MONITOR MED (V58.69) Active confirmed Long-term drug therapy (149841624) Problem Sacroiliitis NOS (720.2) Active confirmed Solitary sacroiliitis (309318474) PLAN OF TREATMENT Pending Test Test Name Order Date C-Reactive Protein, Quant 05/27/2010 Insurance Providers Payer Name Payer Address Payer Phone Subscriber Number Group Number Insured Name Patient Relationship to Insured Coverage Start Date Coverage End Date [employer] [address] [place] [address] [phone] [id number] CLARISA STAUFFER Spouse - patient is [...]
== END 2024-10-28 09:39 | disposition home or self-care (01) ==
LOC: ANHLAB 09:39
PROVIDERS: PCP Family Medicine; Visit Provider Anesthesiology
DX: Z01.818 Encounter for other preprocedural examination (principal); E78.5 Hyperlipidemia, unspecified; F17.200 Nicotine dependence, unspecified, uncomplicated
CPT/HCPCS: 93005

== ENCOUNTER 2024-10-31 08:10 | Day surgery (SDC) | payer MEDICARE, MEDICAID, SELFPAY ==
[2024-10-16 08:39] VITALS: BMI 23.4
--- NOTE | 2024-10-31 06:51 | WPDHPUPDATE1 ---
History and Physical Update Update Date/Time: 10/31/24 06:51 Patient seen and examined in pre-operative holding area. No interval change in medical history or symptoms. Patient recalls previous discussion of benefits and alternatives to procedure. Continues to desire to proceed with left middle finger a1 sridevi and left cubital tunnel release. Reviewed procedure, post-op expectations and risks including but not limited to bleeding, infection, injury to tendon/nerve/vessel, decreased hand function, stiffness, RSD, no change or worsening of symptoms. I discussed the possible use of assistants and their participation in the case. Patient stated understanding and signed the consent form wishing to proceed.
--- NOTE | 2024-10-31 06:52 | P.OP_ITS ---
Procedure Note - Detailed Date of Procedure 10/31/24 Pre-op Diagnosis Left Middle Trigger Finger and left cubital tunnel Post-op Diagnosis Same Procedure Performed left CuTR and L MF a1 sridevi release Surgeon Cherri Masters MD Corporate Strategy Associate elizabeth samson pa-c Anesthesia MAC Description of Procedure INFORMED CONSENT:The patient was seen and examined and marked in the pre-op area.? The patient signed the consent form. PROCEDURE IN DETAIL: The patient taken back to OR on the stretcher in supine position. Time out performed with anesthesia, surgeon and staff agreeing on patient's name site and surgery to be performed SCDs were placed on the lower extremities and inflated A tourniquet was placed on {left} upper extremity and antibiotics given IV After anesthesia administered sedation I injected {8}cc 1%lido with epi and 0.5% marcaine plain at the operative sites The?{left upper extremity}?was prepped and draped in sterile fashion the??{left upper extremity} was??exsanguinated with Esmarch bandage and tourniquet inflated to 250mmHg I took my attention to the left middle finger where proceeded with making a longitudinal incision over the left middle finger A1 sridevi through skin and dermis with a 15 blade scalpel. Littler scissors were used to spread through subcutaneous tissue down to the A1 sridevi. I used 15 blade scalpel to make an initial incision in the sridevi and then used Littler scissors to spread above and below it proximally and distally to complete transection entirely. Ragnell retractor was used to used to withdraw the FDS and FDP tendons for inspection. The tendons were free of masses and synovitis and gliding smoothly in the sheath without triggering or crepitus. Irrigated with normal saline and closed with 4- 0 chromic. I next proceeded with making a longitudinal incision between two heads for flexor carpi ulnaris at end of {left} cubital tunnel with 15 blade scalpel.? Littler scissors were used to spread down to FCU fascia.? An incision was made in FCU fascia and ulnar nerve identified exiting cubital tunnel.? I proceeded with complete retrograde release of the cubital tunnel including 7cm proximal for the intermuscular septum.? The nerve appeared healthy with visible vaso nervorum.? There was no subluxation on full elbow range of motion. ? I irrigated with normal saline and closure with 4-0 monocryl for dermis and subcuticular. The incision was covered with Dermabond at elbow and xeroform in palm then 4x4s, andrea, and a posterior elbow splint for patient safety, security and comfort and secured with mary bandages after the tourniquet was let down noting the hand was warm and well perfused.? Patient awaken from anesthesia and transferred to recovery in stable condition Complications - none EBL- 1cc Disposition - home in stable condition elizabeth samson pa-c was essential for positioning, retraction, closure and dressing placement G Billing Surgery - Charge Forward: Surgery Billing ([id number] same for elizabeth awan )
--- OUTSIDE RECORDS SUMMARY | 2024-10-31 08:50 | XMS_ITS | Patient Health Record ---
Author Organization [facility] [place] Address [address] [place], [place] [address] Care Team Providers Care Manager Services Name Role Phone ADRI PARRA MD Primary Care Provider Cong Orantes Unavailable [phone] REASON FOR REFERRAL No Information MEDICATIONS Medication [...] Notes Problem POLYARTHRITIS (716.59) Active confirmed Polyarthritis (211216606) Problem Lumbago (724.2) Active confirmed Lumbag o (832762293) Problem Pre-treatment laboratory examination (V72.63) Active confirmed Problem MONITOR MED (V58.69) Active confirmed Long-term drug therapy (430921501) Problem Sacroiliitis NOS (720.2) Active confirmed Solitary sacroiliitis (333008572) PLAN OF TREATMENT Pending Test Test Name Order Date C-Reactive Protein, Quant 05/27/2010 Insurance Providers Payer Name Payer Address Payer Phone Subscriber Number Group Number Insured Name Patient Relationship to Insured Coverage Start Date Coverage End Date [employer] [address] [place] [address] [id number] CLARISA STAUFFER Spouse - patient is [...]
--- OUTSIDE RECORDS SUMMARY | 2024-10-31 08:50 | XMS_ITS | Clinical Summary ---
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 Gender Identity Not on file Sexual Orientation [...] TAWANNA SCREENING MAMM W ABDON BI Acc#: [id number] Screening Mamm Bi Acc#: [id number] DATE OF EXAM: Jun 17 2015 CLINICAL [...] Fax: -- Attending Fax: -- Attending ID: [id number] Requesting ID: [id number] Report To 1 ID: [id number] Report To 1 Name: ADRI PARRA Report To 1 FAX: -- NextGen Order #: Procedure Note Provider, MD Ravi - 07/28/2016 MAMMOGRAM PERFORMED BY: TAWANNA SCREENING MAMM W ABDON BI Acc#: [id number] Screening Mamm Bi Acc#: [id number] DATE OF EXAM: Jun 17 2015 CLINICAL [...] Fax: -- Attending Fax: -- Attending ID: [id number] Requesting ID: [id number] Report To 1 ID: [id number] Report To 1 Name: ADRI PARRA Report To 1 FAX: -- NextGen Order #: us Historical Provider MD ADAMS MAMMO PROCEDURES Lu l Result from Last 3 Months or Most Recently Relevant to Health Maintenance Insurance [facility] Address: [id number] [place] [address] [facility] Address: [id number] [place] [address] [place] [employer] Care Teams On Site Manager Relationship Specialty Start Date End Date Tad Fitzpatrick MD [address] [place] [address] PCP - General 09/25/06
--- OUTSIDE RECORDS SUMMARY | 2024-10-31 08:50 | XMS_ITS | Clinical Summary ---
Author Organization [facility] [employer] Address [address] [facility] [place] [address] Care Team Providers Care Surfacing Machine Operator Name Role Phone Corrie De Los Santos MD Primary Care Provider [phone] Claribel Norton RN Unavailable [phone] [facility],non-owned Affiliates and Associated Physician Practices is amultiple site organization consisting of ambulatory clinics and hospital sitesin [place], [place], [place] and [place]. This disclosure is being madepursuant to the Care Everywhere program and may not contain all information available regarding this patient. Last updated [address].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
--- OUTSIDE RECORDS SUMMARY | 2024-10-31 08:50 | XMS_ITS | Referral Summary ---
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 Gender Identity Not on file Sexual Orientation [...] TAWANNA SCREENING MAMM W ABDON BI Acc#: [id number] Screening Mamm Bi Acc#: [id number] DATE OF EXAM: Jun 17 2015 CLINICAL [...] Fax: -- Attending Fax: -- Attending ID: [id number] Requesting ID: [id number] Report To 1 ID: [id number] Report To 1 Name: ADRI PARRA Report To 1 FAX: -- NextGen Order #: Procedure Note Provider, MD Ravi - 07/28/2016 MAMMOGRAM PERFORMED BY: TAWANNA SCREENING MAMM W ABDON BI Acc#: [id number] Screening Mamm Bi Acc#: [id number] DATE OF EXAM: Jun 17 2015 CLINICAL [...] Fax: -- Attending Fax: -- Attending ID: [id number] Requesting ID: [id number] Report To 1 ID: [id number] Report To 1 Name: ADRI PARRA Report To 1 FAX: -- NextGen Order #: Historical Provider MD ADAMS MAMMO PROCEDURES Lu l Result from Last 3 Months or Most Recently Relevant to Health Maintenance Insurance [place] [address] Member Subscriber Plan / Payer (Ef fective 2021-Present) Name:Michelle Perez Relation to Subscriber:Self Name:Michelle Perez Payer ID:[id number] (NAIC) Type:UHC MEDICARE Address: [address] [place] [address] Care Teams Senior Procurement Manager Relationship Specialty Start Date End Date Tad Fitzpatrick MD [address] [place] [address] PCP - General 09/25/06
[2024-10-31 08:58] VITALS: BP 103/87; PULSE 109; RESP 16; TEMP 37; O2SAT 98
[2024-10-31] MEDS: ACETAMINOPHEN 500 MG TABLET 1000 MG PO (09:02)
--- NOTE | 2024-10-31 09:45 | P.PNAN_ITS ---
Anes - Initial Pre Proc Eval Procedure: Operation Date: 10/31/24 10:30 Proposed Procedures p A-1 Jose Rafael Release Left Middle Finger - Cherri Masters MD s Left Cubital Tunnel Release - Cherri Masters MD Date/Time: 10/31/24 09:45 Surgeon: Cherri Masters MD Pre Op Diagnosis: Left Middle Trigger Finger Patient Data Age: 54 Gender: F Height: 1.52 m Weight: 53.3 kg Last Vital Signs Temp 98.6 F 10/31/24 08:58 Pulse 109 H 10/31/24 08:58 Resp 16 10/31/24 08:58 BP 103/87 10/31/24 08:58 Pulse Ox 98 10/31/24 08:58 O2 Del Method Room Air 10/31/24 08:58 Allergies Allergy/AdvReac Type Severity Reaction Status Date / Time No Known Allergies Allergy Unknown Verified 10/31/24 08:56 Home Medications ?Medication ?Instructions ?Recorded ?Confirmed ?Type hydrocodone 10 mg-acetaminophen 1 tablet PO Q4H PRN Pain 11/29/22 10/31/24 History 325 mg tablet oxycodone 20 mg tablet,crush 20 mg PO BID 02/07/24 10/31/24 History resistant,extended release 12 hr (OxyContin) duloxetine 60 mg capsule,delayed 60 mg PO BID #60 caps 06/17/24 10/31/24 Rx release fluticasone propionate 50 See Rx Instructions .Route 06/19/24 10/31/24 Rx mcg/actuation nasal .COMPLEX #16 grams spray,suspension atorvastatin 20 mg tablet 20 mg PO DAILY #90 tabs 07/09/24 10/31/24 Rx meloxicam 15 mg tablet 15 mg PO DAILY #90 tabs 07/09/24 10/31/24 Rx mirtazapine 30 mg tablet 30 mg PO QHS #30 tabs 07/22/24 10/31/24 Rx cyclobenzaprine 10 mg tablet 10 mg PO TID #180 tabs 07/24/24 10/31/24 Rx amitriptyline 25 mg tablet 25 mg PO QHS #30 tabs 08/19/24 10/31/24 Rx levothyroxine 50 mcg tablet 50 mcg PO DAILY #30 tabs 08/19/24 10/31/24 Rx esomeprazole magnesium 40 mg 40 mg PO DAILY #90 caps 08/28/24 10/31/24 Rx capsule,delayed release Patient hx anesthesia problems: none Family hx anesthesia problems: none Results Review: All pre-operative results and documents have been reviewed as part of the pre- operative evaluation. REPLACED BY [facility] Past Medical History Medical History (Updated 10/21/24 @ 13:30 by Cherri Masters MD) Cervical radiculopathy Cervical myelopathy Arthritis Fracture of humerus required orthopedic surgery Hyperlipidemia Migration of spinal cord stimulator Thyroid disease Hx of migraines Surgical History Surgical History H/O arthroscopy of right knee History of lumbar laminectomy History of fundoplication Hx of abdominal hysterectomy Family History Family History Other Alcoholism Cerebrovascular accident Heart disease Hypertension Social History Social History Smoking packs per day: 1 Smoking cigarettes per day: 20.0 Smoking status: Current every day smoker Tobacco type: cigarettes Second hand tobacco smoke exposure: Yes Alcohol intake: never Substance use: never Substance use type: does not use Lack of Transportation: No Lack of Food: Never True Current Housing: I Have Housing Concerned About Future Housing: No Difficulty Paying Gas/Electric Bills: No Difficulty Paying for Meds: No Currently Unemployed: YES Education: High School Diploma/GED Difficulty w/ Childcare or Family Care: No Living arrangements: with family Occupation/Education: unemployed Gender identity (if verbalized by the patient): Female Sexual Orientation (if Verbalized by the Patient): Straight or Heterosexual Spiritual care concerns: No Agree to blood products: Yes Anes - Eval Final PreProcedure Day of Procedure 10/31/24 09:45 Heart: regular rate and rhythm Lungs: clear to auscultation Airway: Mallampati scale class II Neurological: alert and oriented Last oral intake: >/= 8 hours ASA classification: II Anesthetic plan: proceed Anesthesia type and monitoring: monitored anesthesia care Results Review: All pre-operative results and documents have been reviewed as part of the pre- operative evaluation. Informed Consent: The patient's anesthetic plan and its attendant risks and benefits were discussed with the patient/family/POA. Questions were solicited and answers provided to the satisfaction of the patient/family/POA.
[2024-10-31] MEDS: LACTATED RINGERS 1,000 ML 30 ML IV CONT (10:21)
[2024-10-31] MEDS: ceFAZolin SODIUM 2 GM/20 ML SW SYRINGE IV PUSH (10:36)
[2024-10-31] MEDS: BUPivacaine HCL 0.5% 10 ML AMP INFILTRATE (10:51)
[2024-10-31] MEDS: LIDO 1%/EPINEPHRINE 1:100,000 20 ML VIAL 6 ML INFILTRATE (10:53)
[2024-10-31 11:06] VITALS: BP 109/96; PULSE 90; RESP 15; O2SAT 95
--- NOTE | 2024-10-31 11:12 | WPDANESPN ---
Anes - Prog Note Post-Op Date/Time: 10/31/24 11:12 Vital Signs: Last Vital Signs Temp 98.6 F 10/31/24 08:58 Pulse 109 H 10/31/24 08:58 Resp 16 10/31/24 08:58 BP 103/87 10/31/24 08:58 Pulse Ox 98 10/31/24 08:58 O2 Del Method Room Air 10/31/24 08:58 Pain Score (VAS): 0 Patient Feedback: Patient satisfied with anesthetic care.
[2024-10-31 11:16] VITALS: BP 126/83; PULSE 90; RESP 16; O2SAT 94
[2024-10-31 11:26] VITALS: BP 121/81; PULSE 88; RESP 16; O2SAT 98
== END 2024-10-31 11:43 | disposition home or self-care (01) ==
LOC: ASC 08:46
PROVIDERS: PCP Family Medicine; Visit Provider Plastic Surgery
PROC: (CPT 26055; principal; 2024-10-31 10:30)
PROC: (CPT 64718; 2024-10-31 10:30)
DX: G56.22 Lesion of ulnar nerve, left upper limb (principal); M65.332 Trigger finger, left middle finger
CPT/HCPCS: 64718; 26055